=== PATIENT | male | born 1955 | race Caucasian/White ===

== ENCOUNTER 2019-10-27 07:38 | Observation (INO) | payer SELFPAY ==
[2019-10-27] MEDS ORDERED: Ondansetron ODT 4 MG TAB PO PRN (08:58)
[2019-10-27] MEDS ORDERED: HYDROcodone/Acetaminophen 7.5/325 mg Tablet PO PRN (08:58)
[2019-10-27] MEDS ORDERED: HYDROcodone/Acetaminophen 5/325 mg Tablet PO PRN (08:58)
[2019-10-27] MEDS ORDERED: Ondansetron PF 4 MG/2 ML Vial IVP PRN (08:58)
[2019-10-27] MEDS ORDERED: Acetaminophen 325 MG TAB PO PRN (08:58)
[2019-10-27] MEDS ORDERED: Benzonatate 100 MG CAP PO PRN (09:06)
[2019-10-27] MEDS ORDERED: Docusate 100 MG CAP PO PRN (09:06)
[2019-10-27] MEDS ORDERED: diphenhydrAMINE 25 MG CAP PO PRN (09:06)
[2019-10-27] MEDS ORDERED: Labetalol HCl 100 MG/20 ML VIAL SLOW IVP PRN (09:06)
[2019-10-27] MEDS ORDERED: Melatonin 3 MG TAB PO PRN (09:06)
[2019-10-27] MEDS ORDERED: Iopamidol-370 76% 500 ML 1 ML ONE (11:23)
[2019-10-27] MEDS: Heparin 5,000 UNITS/ML VIAL SC SCH ×3 (12:18→20:12)
[2019-10-27] MEDS ORDERED: Morphine 4 MG/ML VIAL SLOW IVP PRN (12:22)
[2019-10-27] MEDS ORDERED: Nitroglycerin 0.4 MG TAB (25 Tab Bottle) SL PRN (12:23)
--- NOTE | 2019-10-27 12:26 | PDOC.HHP ---
Hospitalist HPI - History of Present Illness Chest pain History of Present Illness: 64-year-old gentleman with past medical history of coronary artery disease with history of coronary artery bypass grafting, hypertension, and hyperlipidemia presents with chest pain. Patient states that he had coronary artery bypass grafting done roughly 2 years ago, however since then he has not had any problems with his heart, he has not followed up with doctors or taken medications as he did not have insurance. Patient has had worsening chest pain over the past two weeks. Patient describes it as left of sternum with radiation to the left arm. Patient denies associated nausea, vomiting, or diaphoresis. Patient has had episodes where he felt like he had racing heartbeats or palpitations. Patient denies history of CHF of Afib. Patient has had episodes where he felt chest tightness and pressure like it was hard to get air into his lungs. I find the patient in the emergency department he is breathing comfortably on room air in no apparent distress. Patient admitted to [facility] for further evaluation and treatment. Hospitalist ROS - Review of Systems All other systems reviewed; all pertinent +/- noted in HPI/Subj - Medication Medications: Active Medications Generic Name Dose Route Start Last Admin Trade Name Freq PRN Reason Stop Dose Admin Heparin Sodium (Porcine) 5,000 units 10/27/19 09:00 10/27/19 12:18 Heparin SC Not Given TID [facility] Hospitalist History - Past Medical History Source: patient, family Cardiac: reports: CAD, HTN, Hyperlipidemia. denies: AFIB, CHF Pulmonary: reports: hypertension. 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 Gastrointestinal: reports: GERD - Past Surgical History Past Surgical History: reports: CABG, Hernia Repair, Total Knee Replacement, Other (back surgery) - Social History Smoking Status: Never smoker Alcohol: reports: None Drugs: reports: none Living Situation: With Family Domestic Violence: Negative Activity level: independent ambulation - Exam General Appearance: NAD, awake alert Eye: PERRL, anicteric sclera ENT: normocephalic atraumatic, moist mucosa Neck: supple, symmetric, no lymphadenopathy Heart: no murmur, no gallops, no rubs Respiratory: CTAB, no wheezes, no rales, no ronchi, normal chest expansion, no tachypnea Gastrointestinal: soft, non-tender, non-distended, no guarding, no rigidity Extremities: no clubbing, no edema Skin: no lesions, no rashes Neurological: cranial nerve grossly intact, normal sensation to touch, no weakness Musculoskeletal: no muscle wasting Psychiatric: normal affect, normal behavior, A&O x 3 Hospitalist Results - Labs Lab results: Troponin I Less than 0.010 ng/mL (< 0.028) 10/27/19 08:12 Hospitalist H&P A/P - Problem (1) Chest pain Code(s): R07.9 - CHEST PAIN, UNSPECIFIED Status: Acute (2) CAD (coronary artery disease) Code(s): I25.10 - ATHSCL HEART DISEASE OF [place] CORONARY ARTERY W/O ANG PCTRS Status: Acute (3) HTN (hypertension) Code(s): I10 - ESSENTIAL (PRIMARY) HYPERTENSION Status: Acute (4) HLD (hyperlipidemia) Code(s): E78.5 - HYPERLIPIDEMIA, UNSPECIFIED Status: Acute - Plan Plan: Plan: Admit to Med/ Telemetry Morphine, oxygen, nitrates, ASA NM stress test to rule out reversible ischemia Continuous telemetry to monitor for arrhythmia Echocardiogram to quantify EF and eval for valvular pathology Consider cardiology pending work up Start Lisinopril for BP control Statin Start Beta ivonne prior to D/c, not at this time in case patient with acute [place] Trend troponin DVT PPX GI PPX
[2019-10-27] MEDS: Famotidine 20 MG TAB PO SCH ×2 (12:29→20:10)
[2019-10-27 12:39] VITALS: BMI 30.2
[2019-10-27 13:30] LABS: Troponin I Less than 0.010 ng/mL (< 0.028)
--- NOTE | 2019-10-27 15:33 | CT ---
EXAM: CT angiogram of the chest including 3-D rendering: HISTORY: Lower chest pain elevated d-dimer COMPARISON: None FINDINGS: There is adequate opacification of the pulmonary arteries. No evidence for aortic aneurysm or dissection. No convincing CT evidence for acute pulmonary embolism. No significant acute pulmonary parenchymal process. No evidence for mediastinal mass or adenopathy. No evidence for pleural or pericardial effusion. Small hiatal hernia. 3 vessel coronary calcific disease. IMPRESSION: No convincing CT evidence for acute pulmonary embolism.
[2019-10-27 16:17] LABS: Troponin I Less than 0.010 ng/mL (< 0.028)
[2019-10-27] MEDS ORDERED: Lisinopril 10 MG TAB PO SCH (21:00)
[2019-10-27] MEDS ORDERED: Atorvastatin Calcium 40 MG TAB PO SCH (21:00)
[2019-10-28 05:39] LABS: #Eosinphils 0.4 thou/uL (0.0-0.7); #Lymphocytes 1.1 thou/uL (1.20-3.40); #Monocytes 1.2 thou/uL (0.11-0.59); #Neutrophils 10.3 thou/uL (1.40-6.50); %Basophils 0.1 % (0.0-1.0); %Eosinophils 3.4 % (0.0-10.0); %Lymphocytes 8.5 % (21.0-51.0); %Monocytes 9.4 % (0.0-10.0); %Neutrophils 78.6 % (42.0-75.0); Hemoglobin 15.5 g/dL (14.0-18.0); Mean Corpuscular HGB CONC 33.4 g/dL (32.0-36.0); Mean Corpuscular Hemoglobin 29.5 pg (27.0-31.0); Mean Corpuscular Volume 88.1 fL (78.0-98.0); Mean Platelet Volume 8.2 fL (7.4-10.4); Platelet Count 192 thou/uL (130-400); Red Blood Cell (RBC) Count 5.25 mill/uL (4.70-6.10); White Blood Cell (WBC) Count 13.1 thou/uL (4.8-10.8)
[2019-10-28 05:53] LABS: Anion Gap 10 mmol/L (10-20); BUN (Urea Nitrogen) 11 mg/dL (8.4-25.7); Calc. Creatinine Clearance 115 mL/min (70-130); Calcium 8.8 mg/dL (7.8-10.44); Carbon Dioxide 31 mmol/L (23-31); Chloride 102 mmol/L (98-107); Estimated GFR-MDRD 86; Glucose 106 mg/dL (80-115); Potassium 4.4 mmol/L (3.5-5.1); Sodium 139 mmol/L (136-145)
[2019-10-28] MEDS ORDERED: Aspirin 81 mg Enteric Coated Tablet PO SCH (09:00)
[2019-10-28] MEDS ORDERED: ADENOSINE 60 MG/20 ML VIAL ONE (09:05)
[2019-10-28] MEDS: Heparin 5,000 UNITS/ML VIAL SC SCH (10:55)
--- NOTE | 2019-10-28 12:21 | NM ---
Nuclear medicine Cardiac myocardial perfusion SPECT Ejection fraction study Wall motion cine: DATE:10/27/2019 9:06 AM INDICATION: Intermittent chest pain TECHNIQUE: Number of days:2 Rest Study: Technetium 99m-sestamibi (Cardiolite) dose:28.80 mCi Stress study: Technetium 99m-sestamibi (Cardiolite) dose:10.0 mCi FINDINGS: Cardiac (myocardial perfusion) SPECT There are no reversible myocardial perfusion defects. Ejection fraction study Left ventricular EF = 43% Wall motion cine There was concentric motion and appropriate squeezing seen of the left ventricle on the cine images. There is some mild nonspecific apical dyskinesia. IMPRESSION: No evidence of reversible myocardial ischemia. Slightly diminished LVEF of 43%. Nonspecific apical dyskinesia seen on the gated cine images. Recommend consideration for echocardiogr aphy.
[2019-10-28 12:35] VITALS: BP 143/75; TEMP 98.1
[2019-10-29] MEDS ORDERED: Lisinopril 10 MG TAB PO SCH (09:00)
--- NOTE | 2019-10-29 10:15 | DIS ---
DATE OF ADMISSION: 10/27/2019 DATE OF DISCHARGE: 10/28/2019 DISCHARGE DISPOSITION: Home. FOLLOWUP: Follow up with primary care physician at [facility] in 1 week. DISCHARGE MEDICATIONS: Sublingual nitroglycerin was provided. The patient was advised to increase Nexium to b.i.d. All other home medications were left unchanged. The patient was seen and examined on the day of discharge. Denies any new complaints. No chest pain reported. BRIEF HOSPITAL COURSE: The patient is a 64-year-old male with coronary artery disease status post CABG, hypertension, and hyperlipidemia, presented to the hospital with chest discomfort. He was monitored on telemetry unit. His troponins remain negative. He underwent an echocardiogram that showed left ventricular ejection fraction of 55% to 60% with mild tricuspid regurgitation, normal mitral and aortic valve. CT angiogram of the chest was negative for pulmonary embolism. He underwent a stress test that was negative for reversible ischemia. 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 He is chest pain free. He was advised to continue aspirin. He declines statins. His symptoms are probably secondary to suspected gastritis due to history of NSAID use. He was advised to discontinue NSAIDs and increase the Nexium temporary to 40 mg daily. FINAL DIAGNOSES: 1. Chest discomfort, acute coronary syndrome ruled out. 2. No reversible ischemia on the stress test. 3. Coronary artery disease, status post coronary artery bypass graft in the past. 4. Hypertension. 5. Hyperlipidemia. 6. Chronic kidney disease, stage 2. 7. Obesity with a BMI of 30.2. PLAN: Plan of care was discussed with the patient in detail. He stated understanding. Job ID: [id number]
== END 2019-10-28 15:33 | disposition home or self-care (01) ==
LOC: ERS 07:38 → 2SW 09:47
PROVIDERS: ADMIT Internal Medicine; ATTEND Internal Medicine
DX: R07.89 Other chest pain (principal); E78.5 Hyperlipidemia, unspecified; I07.1 Rheumatic tricuspid insufficiency; I25.10 Atherosclerotic heart disease of native coronary artery without angina pectoris; I12.9 Hypertensive chronic kidney disease with stage 1 through stage 4 chronic kidney disease, or unspecified chronic kidney disease; N18.2 Chronic kidney disease, stage 2 (mild); E66.9 Obesity, unspecified; Z95.1 Presence of aortocoronary bypass graft; Z68.30 Body mass index [BMI] 30.0-30.9, adult; Z88.1 Allergy status to other antibiotic agents; Z79.82 Long term (current) use of aspirin; Z79.899 Other long term (current) drug therapy
CPT/HCPCS: 36415; 71275; 78452; 80048; 85025; 93005; 93017; 93306; 96372; A9500; G0378; J0153; J1644; Q0162; Q9967